=== PATIENT | female | born 1995 | race American Indian/Alaskan Native ===

== ENCOUNTER 2018-08-14 13:23 | Emergency (ER) | payer OTHER ==
[2018-08-14 14:27] VITALS: BP 120/81
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
--- NOTE | 2018-08-14 16:31 | XRay Report ---
Left elbow-3 views INDICATION: left elbow pain. COMPARISON: None. IMPRESSION: No acute osseous or soft tissue abnormality. No significant DJD. Signer Name: Joseph Luo MD Signed: 08/14/2018 4:27 PM Workstation Name: [id number]
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
== END 2018-08-14 17:37 | disposition home or self-care (01) ==
LOC: ED 13:23
DX: S62.613A Displaced fracture of proximal phalanx of left middle finger, initial encounter for closed fracture (principal); Y04.8XXA Assault by other bodily force, initial encounter; Y93.89 Activity, other specified; Y92.89 Other specified places as the place of occurrence of the external cause; Y99.8 Other external cause status